=== PATIENT | female | born 1925 | race Caucasian/White ===

== ENCOUNTER → 2017-02-23 | Outpatient (CLI) | payer MEDICARE, OTHER ==
[~2017-02-23] MED LIST: ALIGN4 MG PO; ATIVAN 0.5MG0.5 MG PO; CORTEF10 MG PO; CORTEF20 MG PO; COZAAR50 MG PO; CRESTOR10 MG PO; DULCOLAX10 MG R; GLUCOPHAGE1000 MG PO; GLUCOTROL 5MG XL5 MG PO; GLUCOTROL XL10 MG PO; INVANZ 1 G1 GM/100 M IV; JANUVIA50 MG PO; LINZESS145 MCG PO; MAGNESIUM CITRATE PO; PROTONIX40 MG PO; TYLENOL EXTRA500 MG PO
== END ==
LOC: LELM 14:32
DX: E21.3 Hyperparathyroidism, unspecified (principal); R53.83 Other fatigue; R53.1 Weakness; R63.4 Abnormal weight loss; E83.52 Hypercalcemia